=== PATIENT | male | born 1990 | race Caucasian/White ===

== ENCOUNTER → 2016-07-24 | Outpatient (CLI) | payer OTHER | LOC: KOH-I 11:57 | DX: M54.5 Low back pain (principal); M25.561 Pain in right knee; M25.562 Pain in left knee; M89.9 Disorder of bone, unspecified; Z88.1 Allergy status to other antibiotic agents | CPT/HCPCS: 72110; 73564 ==

== ENCOUNTER 2016-08-27 12:18 | Emergency (ER) | payer OTHER ==
[2016-08-27 14:42] LABS: HEMOGLOBIN 15.3 gm/dl (14.0-17.5); RED BLOOD COUNT 5.3 M/UL (4.20-5.50); WHITE BLOOD COUNT 7.2 K/UL (4.5-11.0)
[2016-08-27 15:08] LABS: BUN/CREATININE RATIO 16 (0-10)
== END 2016-08-27 16:15 | disposition home or self-care (01) ==
LOC: ER1 12:18
PROVIDERS: Emergency Medicine
DX: R07.9 Chest pain, unspecified (principal); F17.220 Nicotine dependence, chewing tobacco, uncomplicated; F41.9 Anxiety disorder, unspecified; Z88.1 Allergy status to other antibiotic agents; Z91.14 Patient's other noncompliance with medication regimen
CPT/HCPCS: 36415; 71020; 80053; 82550; 82553; 83735; 83874; 84484; 85025; 93005; 99285

== ENCOUNTER 2016-09-08 13:53 | Emergency (ER) | payer OTHER | END 2016-09-08 15:51 | disposition home or self-care (01) | LOC: ER1 13:53 | DX: Z11.3 Encounter for screening for infections with a predominantly sexual mode of transmission (principal); J45.909 Unspecified asthma, uncomplicated; F41.9 Anxiety disorder, unspecified; F32.9 Major depressive disorder, single episode, unspecified; Z88.1 Allergy status to other antibiotic agents; Z79.899 Other long term (current) drug therapy | CPT/HCPCS: 36415; 80074; 81001; 99283 ==